=== PATIENT | female | born 1960 | race Caucasian/White ===

== ENCOUNTER 2022-06-29 20:15 | Emergency (ER) | payer SELFPAY ==
[~2022-06-29] VITALS: Ht 160 cm; Wt 125.2 kg
[2022-06-29 21:01] VITALS: BP 118/73
--- NOTE | 2022-06-29 22:15 | NUR ---
Patient taken to bed 11.
--- NOTE | 2022-06-29 22:18 | NUR ---
Patient BIB by family. C/O left rib, flank and left arm pain x 3 days. Patient reported, fell, no LOC, left rib, flank and left arm pain for 3 days.
--- NOTE | 2022-06-29 23:18 | NUR ---
Dr. Beltran examining patient.
[2022-06-29] MEDS ORDERED: LIDOCAINE 5% 1 EA PATCH TP SCH (23:25)
[2022-06-29] MEDS ORDERED: KETOROLAC 30 MG/ML VIAL IM ONE (23:25)
--- NOTE | 2022-06-30 00:08 | NUR ---
Patient returned back from X-ray.
[2022-06-30] MEDS ORDERED: IBUP-2213 PO (01:11)
[2022-06-30] MEDS ORDERED: DICL100G5 TP (01:11)
[2022-06-30] MEDS ORDERED: ACET-10509 PO (01:11)
[2022-06-30] MEDS ORDERED: PROM118S5 PO (01:14)
[2022-06-30 01:30] VITALS: BP 112/63
--- NOTE | 2022-06-30 01:30 | NUR ---
Patient discharged with v/s stable. Written and verbal after care instructions given and explained. Patient alert, oriented and verbalized understanding of instructions. Ambulatory with steady gait. All questions addressed prior to discharge. ID band removed. Patient advised to follow up with PMD. Rx of Diclofen, Ibuprofen, Promethazine and Tylenol given. Patient educated on indication of medication including possible reaction and side effects. Opportunity to ask questions provided and answered.
== END 2022-06-30 01:30 | disposition home or self-care (01) ==
LOC: MED 20:15
DX: S20.212A Contusion of left front wall of thorax, initial encounter (principal); W18.30XA Fall on same level, unspecified, initial encounter; Y93.89 Activity, other specified; Y92.89 Other specified places as the place of occurrence of the external cause; Y99.8 Other external cause status
CPT/HCPCS: 71101; 96372; 99283; J1885